=== PATIENT | female | born 1955 ===

== ENCOUNTER 2017-08-05 06:58 | Day surgery (SDC) | payer OTHER ==
[2017-08-05 07:21] VITALS: BMI 25.4
[2017-08-05] MEDS ORDERED: Lactated Ringer's 1,000 ML IV ONE ×2 (08:21)
--- NOTE | 2017-08-05 08:22 | CP.SDSHP ---
Same Day Surgery H & P - History Proposed Procedure: EGD Pre-Op Diagnosis: SEE NOTES - Previous Medical/Surgical History Cardiac: Hypertension Endocrine/Metabolic: Diabetes, Other Misc: Other Pain: 4.Moderate Pain - Allergies Allergies: Allergies No Known Allergies Allergy (Verified 08/05/17 07:21) - Physical Exam General Appearance: N Vital Signs: Vital Signs 08/05/17 07:32 Temperature 97.5 F L Pulse Rate 62 Respiratory 18 Rate Blood Pressure 119/63 O2 Sat by Pulse 100 Oximetry Mental Status: Alert & Oriented x3 Neuro: WNL Heart: Other Lungs: WNL GI: Other - {Optional Preform as Required} Breast: WNL Abdomen: Other Rectal: Other Integument: WNL : WNL Ortho: Other ENT: WNL - Impression Pt. Evaluated Today:Candidate for Anesthesia & Procedure: Yes - Date & Time Time: 08:22 Short Stay Discharge - Short Stay Discharge Admitting Diagnosis/Reason for Visit: DYSPEPSIA Disposition: HOME/ ROUTINE
[2017-08-05] MEDS ORDERED: Propofol 10 mg/ml Inj (20 ML) ONE ×2 (08:23→08:24)
[2017-08-05] MEDS ORDERED: Lidocaine Hydrochloride 5 ML INJ ONE (08:25)
[2017-08-05] MEDS ORDERED: Belladonna-Phenobarbital PO ONE (09:00)
[2017-08-05 09:07] VITALS: TEMP 97.7
[2017-08-05 09:28] VITALS: O2SAT 100
[2017-08-05 09:29] VITALS: RESP 19
[2017-08-05 10:13] VITALS: BP 120/79; PULSE 89
== END 2017-08-05 09:40 | disposition home or self-care (01) ==
LOC: C.ENDO 06:58
PROVIDERS: ATTEND Specialist
DX: R10.13 Epigastric pain (principal); R10.84 Generalized abdominal pain; K44.9 Diaphragmatic hernia without obstruction or gangrene; K29.70 Gastritis, unspecified, without bleeding; K29.80 Duodenitis without bleeding; I10 Essential (primary) hypertension; E11.9 Type 2 diabetes mellitus without complications
CPT/HCPCS: 43239; 82948; 88305; J2704; J7120

== ENCOUNTER 2018-07-24 06:58 | Inpatient (IN) | payer OTHER ==
[2018-07-24 07:13] VITALS: BMI 24.0
--- NOTE | 2018-07-24 07:53 | C.PDOC ---
History Of Present Illness 63 y/o female with a PMHx of diabetes, hypertension, hypercholesterolemia, presents to the ED complaining of pain to the left upper arm and shoulder, onset yesterday morning. Reports taking Tylenol at home without relief. Patient states she was unable to sleep last night due to worsening pain. She also notes occasional chest pain. Admits to mild cough and feeling of dry mouth but she denies feeling short of breath. Otherwise she denies any dizziness, palpitations, nausea, vomiting, diaphoresis, visual changes, or leg pain/swe lling. No associated extremity weakness, numbness, or paresthesias. Denies recent trauma or fall. Time Seen by Provider: 07/24/18 07:35 Chief Complaint (Nursing): Upper Extremity Problem/Injury History Per: Patient History/Exam Limitations: no limitations Onset/Duration Of Symptoms: Days (x 2) Current Symptoms Are (Timing): Still Present Quality: "Pain" Past Medical History Reviewed: Historical Data, Nursing Documentation, Vital Signs Vital Signs: Last Vital Signs Temp 98.1 F 07/24/18 07:13 Pulse 103 H 07/24/18 07:13 Resp 18 07/24/18 07:13 BP 152/78 H 07/24/18 07:13 Pulse Ox 100 07/24/18 07:13 - Medical History PMH: Diabetes, HTN, Hypercholesterolemia Denies: Chronic Kidney Disease Other Surgeries: Tubal ligation Family History: States: Unknown Family Hx - Social History Hx Tobacco Use: No Hx Alcohol Use: No Hx Substance Use: No - Immunization History Hx Tetanus Toxoid Vaccination: No Hx Influenza Vaccination: Yes Hx Pneumococcal Vaccination: No Review Of Systems Except As Marked, All Systems Reviewed And Found Negative. Constitutional: Negative for: Fever, Chills Eyes: Negative for: Vision Change Cardiovascular: Positive for: Chest Pain (occasional). Negative for: Palpitations, Light Headedness Respiratory: Positive for: Cough. Negative for: Shortness of Breath Gastrointestinal: Negative for: Nausea, Vomiting Musculoskeletal: Positive for: Shoulder Pain, Arm Pain Neurological: Negative for: Weakness, Numbness, Incoordination, Dizziness Physical Exam - Physical Exam Appears: Non-toxic, No Acute Distress Skin: Warm, Dry, No Diaphoretic Head: Atraumatic, Normacephalic Eye(s): bilateral: Normal Inspection, PERRL, EOMI Oral Mucosa: Moist Neck: Normal ROM Chest: Symmetrical, No Tenderness, No Ecchymosis Cardiovascular: Rhythm Regular, No Murmur Respiratory: Normal Breath Sounds, No Rales, No Rhonchi, No Wheezing Gastrointestinal/Abdominal: Soft, No Tenderness, No Distention Extremity: No Pedal Edema, No Deformity Extremity: Bilateral: Atraumatic (with no focal tenderness to the left upper extremity), Normal Color And Temperature, Normal ROM (x 4) Pulses: Left Radial: Normal, Right Radial: Normal Neurological/Psych: Oriented x3, Normal Speech, Normal Cranial Nerves ED Course And Treatment - Laboratory Results Result Diagrams: 07/24/18 08:08 07/24/18 08:08 ECG: Interpreted By Me, Viewed By Me ECG Rhythm: Sinus Tachycardia Interpretation Of ECG: No ST elevations or depressions Rate From EC (bpm) O2 Sat by Pulse Oximetry: 100 (RA) Pulse Ox Interpretation: Normal - Radiology CXR: Interpreted by Me, Viewed By Me CXR Interpretation: Yes: No Acute Disease - Other Rad Left Shoulder X-Ray X-Ray: Interpreted by Me, Viewed By Me Interpretation: (-) acute fracture or dislocation Progress Note: EKG reviewed, no acute changes. Blood work sent to the lab. Administered 325 mg PO Aspirin. X-ray taken of chest and left shoulder. Labs reviewed, (-) trop, blood sugar 292, otherwise unremarkable. Imaging shows no acute findings. Patient educated regarding negative cardiac work-up. [employer] used to ensure understanding. She continues to complain of chest pain radiating to the left shoulder, will admit for obs. - Physician Consult Information Time Consulting Physician Contacted: 10:50 Physician Contacted: Priscilla Riley Outcome Of Conversation: Patient accepted for observation of chest pain, requests cardiology consult w/ Dr. Jarrett Disposition - Disposition Disposition: HOSPITALIZED Disposition Time: 10:55 Condition: FAIR - Clinical Impression Clinical Impression: Chest pain - PA / MANAGER MEDICAL / Resident Statement MD/DO has reviewed & agrees with the documentation as recorded. - Scribe Statement The provider has reviewed the documentation as recorded by the Scribdominique Kruger All medical record entries made by the Scribe were at my direction and personally dictated by me. I have reviewed the chart and agree that the record accurately reflects my personal performance of the history, physical exam, m edical decision making, and the department course for this patient. I have also personally directed, reviewed, and agree with the discharge instructions and disposition. Decision To Admit - Pt Status Changed To: Hospital Disposition Of: Observation - . Bed Request Type: Telemetry Admitting Physician: Priscilla Riley Patient Diagnosis: Chest pain
[2018-07-24 08:13] LABS: BASO % 0.3 % (0.0-2.0); EOS # 0.1 K/uL (0.0-0.7); LYMPH # 2.7 K/uL (1.0-4.3); LYMPH % 28.6 % (20.0-40.0); MEAN CORPUSCULAR HEMOGLOBIN 28.3 pg (27.0-31.0); MEAN CORPUSCULAR HGB CONC 32.9 g/dL (33.0-37.0); MEAN PLATELET VOLUME 9.5 fL (7.2-11.7); MONO # 0.6 K/uL (0.0-0.8); MONO % 6.4 % (0.0-10.0); NEUT # 6.1 K/uL (1.8-7.0); NEUT % 63.7 % (50.0-75.0); RBC 4.94 Mil/uL (3.80-5.20); RED CELL DISTRIBUTION WIDTH 14.3 % (11.5-14.5); WHITE BLOOD COUNT 9.6 K/uL (4.8-10.8)
[2018-07-24 08:35] LABS: ALB/GLOB RATIO 1.5 (1.0-2.1); ALBUMIN 4.5 g/dL (3.5-5.0); ALT/SGPT 27 U/L (9-52); AST/SGOT 21 U/L (14-36); BLOOD UREA NITROGEN 17 mg/dL (7-17); CALCIUM 9.2 mg/dl (8.6-10.4); GFR NON-AFRICAN AMERICAN > 60
[2018-07-24 08:42] LABS: CK-MB 0.43 ng/mL (0.0-3.38)
--- NOTE | 2018-07-24 10:27 | RAD ---
PROCEDURE: Radiographs of the Left Shoulder HISTORY: atraumatic pain COMPARISON: None available. FINDINGS: BONES: No acute displaced fracture. The distal clavicle and underlying ribs appear intact. JOINTS: No acute dislocation. SOFT TISSUES: Soft tissues appear unremarkable. No evidence of radiopaque foreign body. IMPRESSION: No acute findings.
--- NOTE | 2018-07-24 10:28 | RAD ---
HISTORY: left shoulder pain, cough, CP COMPARISON: None available. TECHNIQUE: Chest PA and lateral FINDINGS: LUNGS: No focal consolidation. Please note that chest x-ray has limited sensitivity for the detection of pulmonary masses. PLEURA: No significant pleural effusion identified. No definite pneumothorax . CARDIOVASCULAR: Heart size appears within normal limits. No atherosclerotic calcification present. OSSEOUS STRUCTURES: No acute osseous abnormality identified. VISUALIZED UPPER ABDOMEN: Unremarkable. OTHER FINDINGS: None. IMPRESSION: No focal consolidation.
--- NOTE | 2018-07-24 11:39 | CP.PCM.PN ---
Subjective - Date & Time of Evaluation Date of Evaluation: 07/24/18 Time of Evaluation: 11:39 - Subjective Subjective: H&P dictated #[id number] Objective - Vital Signs/Intake and Output Vital Signs (last 24 hours): Temp Pulse Resp BP Pulse Ox 98.1 F 103 H 18 152/78 H 100 07/24/18 07:13 07/24/18 07:13 07/24/18 07:13 07/24/18 07:13 07/24/18 11:05 - Labs Labs: 07/24/18 08:08 07/24/18 08:08 PT 11.0 SECONDS (9.7-12.2) 07/24/18 08:08 INR 1.0 07/24/18 08:08 APTT 30 SECONDS (21-34) 07/24/18 08:08
[2018-07-24] MEDS: (Novolin R) Insulin Human Regular 100 units/ml vial SC SCH ×2 (15:33→21:32)
[2018-07-24] MEDS ORDERED: (Novolin R) Insulin Human Regular 100 units/ml vial ONE (15:38)
[2018-07-24 16:19] VITALS: RESP 20
[2018-07-24 19:31] LABS: SQUAMOUS EPITHIAL 1 /hpf (0-5); URINE BILIRUBIN NEGATIVE (NEGATIVE); URINE BLOOD NEGATIVE (NEGATIVE); URINE CLARITY Clear (Clear); URINE COLOR Yellow (YELLOW); URINE GLUCOSE (UA) 3+ mg/dL (Normal); URINE LEUKOCYTE ESTERASE 1+ Leu/uL (Negative); URINE PROTEIN NEGATIVE (NEGATIVE); URINE UROBILINOGEN NORMAL mg/dL (0.2-1.0)
[2018-07-25 04:09] LABS: BASO # 0.1 K/uL (0.0-0.2); EOS # 0.1 K/uL (0.0-0.7); EOS % 1.4 % (0.0-4.0); HEMOGLOBIN 14.5 g/dL (11.0-16.0); LYMPH # 3.9 K/uL (1.0-4.3); MEAN CORPUSCULAR HEMOGLOBIN 28.2 pg (27.0-31.0); MEAN CORPUSCULAR HGB CONC 32.8 g/dL (33.0-37.0); MEAN PLATELET VOLUME 9.8 fL (7.2-11.7); MONO # 0.7 K/uL (0.0-0.8); NEUT # 4.7 K/uL (1.8-7.0); NEUT % 49.6 % (50.0-75.0); RBC 5.13 Mil/uL (3.80-5.20); RED CELL DISTRIBUTION WIDTH 14.1 % (11.5-14.5); WHITE BLOOD COUNT 9.5 K/uL (4.8-10.8)
[2018-07-25 04:37] LABS: ALB/GLOB RATIO 1.6 (1.0-2.1); ALBUMIN 4.4 g/dL (3.5-5.0); ALT/SGPT 19 U/L (9-52); AST/SGOT 16 U/L (14-36); BLOOD UREA NITROGEN 21 mg/dL (7-17); CALCIUM 8.7 mg/dl (8.6-10.4); GFR NON-AFRICAN AMERICAN > 60; HDL CHOLESTEROL 49 mg/dL (30-70)
[2018-07-25 04:38] LABS: LDL CHOLESTEROL 160 mg/dL (0-129)
[2018-07-25] MEDS: (Novolin R) Insulin Human Regular 100 units/ml vial SC SCH ×4 (07:42→21:14)
--- NOTE | 2018-07-25 09:47 | CP.PCM.PN ---
Subjective - Date & Time of Evaluation Date of Evaluation: 07/25/18 Time of Evaluation: 09:47 - Subjective Subjective: Progress note dictated #[id number] Objective - Vital Signs/Intake and Output Vital Signs (last 24 hours): Temp Pulse Resp BP Pulse Ox 99.8 F H 87 20 110/70 97 07/25/18 08:35 07/25/18 09:01 07/25/18 08:35 07/25/18 08:35 07/25/18 08:35 Intake and Output: 07/25/18 07/25/18 06:59 18:59 Intake Total 120 Balance 120 - Medications Medications: Current Medications Glimepiride (Amaryl) 4 mg PO BID [facility] Last Admin: 07/25/18 09:16 Dose: 4 mg Heparin Sodium (Porcine) (Heparin) 5,000 units SC Q12 [facility] Last Admin: 07/25/18 09:16 Dose: 5,000 units Insulin Human Regular (Novolin R) 1 unit SC ACHS [facility]; Protocol Last Admin: 07/25/18 07:42 Dose: 4 units Lisinopril (Zestril) 5 mg PO DAILY [facility] Last Admin: 07/25/18 09:32 Dose: 5 mg Metformin HCl (Glucophage) 1,000 mg PO BID [facility] Last Admin: 07/25/18 09:16 Dose: 1,000 mg Rosuvastatin Calcium (Crestor) 10 mg PO HS [facility] Last Admin: 07/24/18 21:54 Dose: 10 mg - Labs Labs: 07/25/18 04:06 07/25/18 04:06 PT 11.0 SECONDS (9.7-12.2) 07/24/18 08:08 INR 1.0 07/24/18 08:08 APTT 30 SECONDS (21-34) 07/24/18 08:08
[2018-07-25] MEDS: Lidocaine 5% Patch TD SCH (11:49)
--- NOTE | 2018-07-25 15:33 | PN ---
DATE: 07/25/2018 SUBJECTIVE: The patient is seen and examined at bedside. The patient feels slightly better. Left-sided shoulder pain is better, but still present; is able to move her left upper extremity better than before. Denies any other new complaints. PHYSICAL EXAMINATION: GENERAL: A middle-aged female lying in bed, in no acute distress. VITAL SIGNS: Blood pressure 110/70, pulse 87, respirations 20, temperature 99.8 degrees Fahrenheit, and O2 sats 97% on room air. HEENT: Pupils equal, round, and reacting to light and accommodation. Extraocular muscles intact. No icterus. No pallor. No oral thrush. No pharyngeal congestion. NECK: Supple. No JVD. LUNGS: Bilateral vesicular breath sounds. No wheezing. No rhonchi. CVS: S1 and S2 present, regular. ABDOMEN: Soft, nontender. Bowel sounds present. No guarding, no rigidity. No rebound tenderness noted. DIRECTOR OF ORTHOPEDICS: Alert, awake, and oriented x3. No focal deficits noted. EXTREMITIES: No edema. Palpable peripheral pulses. Movements around the left shoulder slightly improved than yesterday. MEDICATIONS: Her medications include Amaryl 4 mg b.i.d., heparin 5000 units subcu every 12 hours, Zestril 5 mg daily, metformin 1000 mg p.o. t.i.d., Crestor 10 mg p.o. h.s. LABORATORY DATA: Labs from this morning, WBC 9.5, hemoglobin 14.5, hematocrit 44.1, platelets 267. Sodium 136, potassium 4.7, chloride 101, bicarb 23, BUN 21, creatinine 0.7, glucose 324, 283; calcium 8.7; total bilirubin 0.5; AST 16; ALT 19; alkaline phosphatase 89; total protein 7.2; albumin 4.4; triglycerides 279; cholesterol 240; LDL 160; HDL 49. Shoulder x-ray negative. Echocardiogram done, report is stenting. MRI ordered, not done yet. ASSESSMENT AND PLAN: A middle-aged female with past medical history of hypertension, hyperlipidemia, diabetes mellitus, hiatal hernia, gastritis, admitted for left-sided shoulder pain and left-sided chest pain. All the cardiac enzymes are negative. No new EKG changes. Echocardiogram pending results. Probably a difficult chest pain, left shoulder pain, possible muscular pain versus tendonitis. I will continue with current medication. The patient takes insulin at home which is 22 units at night. We will restart her insulin. Continue with other medication. We will follow up echo report and follow up with Cardiology. If echo is negative and cleared by Cardiology, we will plan discharging the patient home in a.m. Priscilla Riley MD
--- NOTE | 2018-07-25 16:48 | MRI ---
MRI left shoulder HISTORY: Shoulder pain. Comparison: None available. Technique: Multi-echo multiplanar sequences were performed through the left shoulder without the use of intravenous contrast. Findings: Prominent thinning with increased signal seen within and at the undersurface of the distal supraspinatus tendon suggestive for prominent partial articular surface tearing with an associated moderate tendinopathy. At approximately 1.1 centimeters from its insertion on the distal supraspinatus tendon, there is a large focal partial-thickness tear as demonstrated on series 10, image 18. No significant muscle atrophy. Moderate distal infraspinatus tendinopathy with interstitial delamination and interstitial partial tearing. No gross full-thickness defect, tendon retraction, or muscle atrophy. Teres minor tendon is preserved. Moderate distal subscapularis tendinopathy. Proximal portion of the long head of the biceps tendon is maintained within its normal anatomic position. Evaluation of the glenoid labrum demonstrates degenerative fraying and/or degenerative partial tearing at the level of the anterior inferior as well as the posterior superior labrum. Small to moderate glenohumeral joint effusion. Prominent increased signal is seen within the subscapularis muscle belly as demonstrated on series 10, images 1-5. This is of uncertain clinical etiology and may represent a myositis versus intramuscular partial tearing versus the sequelae of acute infectious and or inflammatory changes versus additional etiology. Clinical correlation. Heterogeneity of the visualized marrow with patchy decreased T1 signal suggestive for hematopoietic marrow reconversion. Moderate acromioclavicular joint space degenerative changes with joint space narrowing, subchondral edema, and bony hypertrophy. Incidentally noted is some reactive edema at the level of the left second and 3rd ribs which may represent underlying rib injury. Correlation with left rib series may be helpful if clinically indicated. Impression: 1. Small to moderate left glenohumeral joint effusion. 2. Prominent increased signal is seen within the left subscapularis muscle belly as demonstrated on series 10, images 1-5. This is of uncertain clinical etiology and may represent a myositis versus intramuscular partial tearing versus the sequelae of acute infectious and or inflammatory changes versus additional etiology. Clinical correlation. 3. Prominent thinning with increased signal seen within and at the undersurface of the distal supraspinatus tendon suggestive for prominent partial articular surface tearing with an associated moderate tendinopathy. At approximately 1.1 centimeters from its insertion on the distal supraspinatus tendon, there is a large focal partial-thickness tear as demonstrated on series 10, image 18. No significant muscle atrophy. 4. Moderate distal infraspinatus tendinopathy with interstitial delamination and interstitial partial tearing. No gross full-thickness defect, tendon retraction, muscle atrophy. 5. Moderate distal subscapularis tendinopathy. 6. Evaluation of the glenoid labrum demonstrates degenerative fraying and/or degenerative partial tearing at the level of the anterior inferior as well as the posterior superior labrum. 7. Moderate acromioclavicular joint space degenerative changes with joint space narrowing, subchondral edema, and bony hypertrophy. 8. Incidentally noted is some reactive edema at the level of the left second and 3rd ribs which may represent underlying rib injury. Correlation with left rib series may be helpful if clinically indicated.
--- NOTE | 2018-07-25 16:50 | CARD ---
APPROVED REPORT Date of service: 07/24/2018 EXAM: Two-dimensional and M-mode echocardiogram with Doppler and color Doppler. INDICATION Chest Pain 2D DIMENSIONS IVSd0.6 (0.7-1.1cm)Aortic Root (2D)3.1 (2.0-3.7cm) LVDd5.1 (3.9-5.9cm)PWd0.5 (0.7-1.1cm) LA Qeqhuw12 (18-58mL)LVDs3.5 (2.5-4.0cm) FS (%) 31.8 %LVEF (%)59.5 (>50%) LVEF (Toribio's)60 %IVC0.00 cm M-Mode DIMENSIONS IVSd0.52 (0.7-1.1cm)LVDd5.04 (4.0-5.6cm) PWd0.68 (0.7-1.1cm)FS (%) 35 % LVDs3.29 (2.0-3.8cm)TAPSE12.36 cm LVEF (%)64 (>50%) Mitral Valve MV E Xovhwhgx22.4cm/sMV A Nphdukyu63.8cm/sE/A ratio0.9 TDI Lateral E' Peak V4.09cm/sMedial E' Peak V3.58cm/sE/Lateral E'15.7 E/Medial E'18.0 Tricuspid Valve TR Peak [id number]/sTR Peak Gr.[id number] LEFT VENTRICLE The left ventricle is normal size. There is normal left ventricular wall thickness. Left ventricle systolic function is normal. The Ejection Fraction is 55-60%. There is normal LV segmental wall motion. Tissue Doppler imaging reveals abnormal left ventricular diastolic dysfunction. RIGHT VENTRICLE The right ventricle is normal size. There is normal right ventricular wall thickness. The right ventricular systolic function is normal. ATRIA The left atrium size is normal. The right atrium size is normal. The interatrial septum is intact with no evidence for an atrial septal defect. AORTIC VALVE The aortic valve is normal in structure. No aortic regurgitation is present. There is no aortic valvular stenosis. MITRAL VALVE The mitral valve is normal in structure. There is no evidence of mitral valve prolapse. There is no mitral valve stenosis. Mitral regurgitation is mild. TRICUSPID VALVE The tricuspid valve is normal in structure. There is mild tricuspid regurgitation. Right ventricular systolic pressure is estimated at 30-40 mmHg. There is mild pulmonary hypertension. PULMONIC VALVE The pulmonic valve is not well visualized. There is no pulmonic valvular regurgitation. GREAT VESSELS The aortic root is normal in size. PERICARDIAL EFFUSION There is no significant pericardial effusion. <Conclusion> Left ventricle systolic function is normal. The Ejection Fraction is 55-60%. Diastolic dysfunction. No aortic regurgitation is present. Mitral regurgitation is mild. There is mild tricuspid regurgitation. There is mild pulmonary hypertension. There is no pulmonic valvular regurgitation.
--- NOTE | 2018-07-25 19:29 | CP.PCM.CON ---
History of Present Illness - History of Present Illness History of Present Illness: CC: Chest Pain 63 y/o female with a PMHx of diabetes, hypertension, hypercholesterolemia, presents to the ED complaining of pain to the left upper arm and shoulder, onset yesterday morning. Reports taking Tylenol at home without relief. Patient states she was unable to sleep last night due to worsening pain. She also notes occasional chest pain. Admits to mild cough and feeling of dry mouth but she denies feeling short of breath. Otherwise she denies any dizziness, palpitations, nausea, vomiting, diaphoresis, visual changes, or leg pain/swelling. No associated extremity weakness, numbness, or paresthesias. Denies recent trauma or fall. Chief Complaint (Nursing): Upper Extremity Problem/Injury History Per: Patient History/Exam Limitations: no limitations Onset/Duration Of Symptoms: Days (x 2) Current Symptoms Are (Timing): Still Present Quality: "Pain" - Medical History PMH: Diabetes, HTN, Hypercholesterolemia Denies: Chronic Kidney Disease Other Surgeries: Tubal ligation Family History: States: Unknown Family Hx - Social History Hx Tobacco Use: No Hx Alcohol Use: No Hx Substance Use: No - Immunization History Hx Tetanus Toxoid Vaccination: No Hx Influenza Vaccination: Yes Hx Pneumococcal Vaccination: No Review Of Systems Except As Marked, All Systems Reviewed And Found Negative. Constitutional: Negative for: Fever, Chills Eyes: Negative for: Vision Change Cardiovascular: Positive for: Chest Pain (occasional). Negative for: Palpitations, Light Headedness Respiratory: Positive for: Cough. Negative for: Shortness of Breath Gastrointestinal: Negative for: Nausea, Vomiting Musculoskeletal: Positive for: Shoulder Pain, Arm Pain Neurological: Negative for: Weakness, Numbness, Incoordination, Dizziness Physical Exam - Physical Exam Appears: Non-toxic, No Acute Distress Skin: Warm, Dry, No Diaphoretic Head: Atraumatic, Normacephalic Eye(s): bilateral: Normal Inspection, PERRL, EOMI Oral Mucosa: Moist Neck: Normal ROM Chest: Symmetrical, No Tenderness, No Ecchymosis Cardiovascular: Rhythm Regular, No Murmur Respiratory: Normal Breath Sounds, No Rales, No Rhonchi, No Wheezing Gastrointestinal/Abdominal: Soft, No Tenderness, No Distention Extremity: No Pedal Edema, No Deformity Extremity: Bilateral: Atraumatic (with no focal tenderness to the left upper extremity), Normal Color And Temperature, Normal ROM (x 4) Pulses: Left Radial: Normal, Right Radial: Normal Neurological/Psych: Oriented x3, Normal Speech, Normal Cranial Nerves Past Patient History - Past Medical History & Family History Past Medical History?: Yes - Past Social History Smoking Status: Never Smoked - CARDIAC Hx Hypercholesterolemia: Yes Hx Hypertension: Yes - PULMONARY Hx Respiratory Disorders: No - NEUROLOGICAL Hx Neurological Disorder: No - HEENT Hx HEENT Problems: No - RENAL Hx Chronic Kidney Disease: No - ENDOCRINE/METABOLIC Hx Endocrine Disorders: Yes Hx Diabetes Mellitus Type 2: Yes - HEMATOLOGICAL/ONCOLOGICAL Hx Blood Disorders: No - INTEGUMENTARY Hx Dermatological Problems: No - MUSCULOSKELETAL/RHEUMATOLOGICAL Hx Musculoskeletal Disorders: No - GASTROINTESTINAL Hx Hemorrhoids: Yes - GENITOURINARY/GYNECOLOGICAL Hx Genitourinary Disorders: No - PSYCHIATRIC Hx Substance Use: No - SURGICAL HISTORY Hx Surgeries: Yes (BLADDER LIFT) Hx Tubal Ligation: Yes - ANESTHESIA Hx Malignant Hyperthermia: No Meds Allergies/Adverse Reactions: Allergies Allergy/AdvReac Type Severity Reaction Status Date / Time No Known Allergies Allergy Verified 07/24/18 07:12 - Medications Medications: Current Medications Glimepiride (Amaryl) 4 mg PO BID [facility] Last Admin: 07/25/18 17:08 Dose: 4 mg Heparin Sodium (Porcine) (Heparin) 5,000 units SC Q12 [facility] Last Admin: 07/25/18 09:16 Dose: 5,000 units Ibuprofen (Motrin Tab) 400 mg PO Q8H PRN PRN Reason: Pain, moderate (4-7) Insulin Human Regular (Novolin R) 1 unit SC [facility]; Protocol Last Admin: 07/25/18 17:09 Dose: 5 units Lidocaine (Lidoderm) 1 ea TD DAILY [facility] Last Admin: 07/25/18 11:49 Dose: 1 ea Lisinopril (Zestril) 5 mg PO DAILY [facility] Last Admin: 07/25/18 09:32 Dose: 5 mg Metformin HCl (Glucophage) 1,000 mg PO BID [facility] Last Admin: 07/25/18 17:08 Dose: 1,000 mg Rosuvastatin Calcium (Crestor) 10 mg PO HS [facility] Last Admin: 07/24/18 21:54 Dose: 10 mg Results - Vital Signs Recent Vital Signs: Last Vital Signs Temp 99.8 F H 07/25/18 08:35 Pulse 87 07/25/18 09:01 Resp 20 07/25/18 08:35 BP 110/70 07/25/18 08:35 Pulse Ox 97 07/25/18 08:35 - Labs Result Diagrams: 07/25/18 04:06 07/25/18 04:06 Labs: Laboratory Results - last 24 hr 07/24/18 07/24/18 07/24/18 19:09 19:18 21:18 WBC RBC Hgb Hct MCV MCH MCHC RDW Plt Count MPV Neut % (Auto) Lymph % (Auto) Henry % (Auto) Eos % (Auto) Baso % (Auto) Neut # (Auto) Lymph # (Auto) Henry # (Auto) Eos # (Auto) Baso # (Auto) Sodium Potassium Chloride Carbon Dioxide Anion Gap BUN Creatinine Est GFR ( Amer) Est GFR (Non-Af Amer) POC Glucose (mg/dL) 246 H Random Glucose Calcium Total Bilirubin AST ALT Alkaline Phosphatase Troponin I < 0.0120 Total Protein Albumin Globulin Albumin/Globulin Ratio Triglycerides Cholesterol LDL Cholesterol Direct HDL Cholesterol Urine Color Yellow Urine Clarity Clear Urine pH 7.0 Ur Specific Carter 1.013 Urine Protein Negative Urine Glucose (UA) 3+ H Urine Ketones Trace Urine Blood Negative Urine Nitrate Negative Urine Bilirubin Negative Urine Urobilinogen Normal Ur Leukocyte Esterase 1+ H Urine WBC (Auto) 7 H Urine RBC (Auto) < 1 Ur Squamous Epith Cells 1 07/25/18 07/25/18 07/25/18 04:06 04:06 04:06 WBC 9.5 RBC 5.13 Hgb 14.5 Hct 44.1 MCV 86.0 MCH 28.2 MCHC 32.8 L RDW 14.1 Plt Count 267 MPV 9.8 Neut % (Auto) 49.6 L Lymph % (Auto) 41.0 H Henry % (Auto) 7.0 Eos % (Auto) 1.4 Baso % (Auto) 1.0 Neut # (Auto) 4.7 Lymph # (Auto) 3.9 Henry # (Auto) 0.7 Eos # (Auto) 0.1 Baso # (Auto) 0.1 Sodium 136 Potassium 4.7 Chloride 101 Carbon Dioxide 23 Anion Gap 17 BUN 21 H Creatinine 0.7 Est GFR ( Amer) > 60 Est GFR (Non-Af Amer) > 60 POC Glucose (mg/dL) Random Glucose 283 H Calcium 8.7 Total Bilirubin 0.5 AST 16 ALT 19 Alkaline Phosphatase 89 Troponin I < 0.0120 Total Protein 7.2 Albumin 4.4 Globulin 2.8 Albumin/Globulin Ratio 1.6 Triglycerides 279 H D Cholesterol 240 H LDL Cholesterol Direct 160 H HDL Cholesterol 49 Urine Color Urine Clarity Urine pH Ur Specific Carter Urine Protein Urine Glucose (UA) Urine Ketones Urine Blood Urine Nitrate Urine Bilirubin Urine Urobilinogen Ur Leukocyte Esterase Urine WBC (Auto) Urine RBC (Auto) Ur Squamous Epith Cells 07/25/18 07/25/18 07/25/18 06:28 11:34 16:18 WBC RBC Hgb Hct MCV MCH MCHC RDW Plt Count MPV Neut % (Auto) Lymph % (Auto) Henry % (Auto) Eos % (Auto) Baso % (Auto) Neut # (Auto) Lymph # (Auto) Henry # (Auto) Eos # (Auto) Baso # (Auto) Sodium Potassium Chloride Carbon Dioxide Anion Gap BUN Creatinine Est GFR ( Amer) Est GFR (Non-Af Amer) POC Glucose (mg/dL) 324 H 255 H 350 H Random Glucose Calcium Total Bilirubin AST ALT Alkaline Phosphatase Troponin I Total Protein Albumin Globulin Albumin/Globulin Ratio Triglycerides Cholesterol LDL Cholesterol Direct HDL Cholesterol Urine Color Urine Clarity Urine pH Ur Specific Carter Urine Protein Urine Glucose (UA) Urine Ketones Urine Blood Urine Nitrate Urine Bilirubin Urine Urobilinogen Ur Leukocyte Esterase Urine WBC (Auto) Urine RBC (Auto) Ur Squamous Epith Cells Assessment & Plan - Assessment and Plan (Free Text) Assessment: 63 F with multiple cardiac risk factors admitted for chest pain Needs ECHO and stress test Scheduled for stress test Friday
--- NOTE | 2018-07-26 06:54 | HP ---
CHIEF COMPLAINT: Left-sided shoulder pain associated with nausea and dizziness. HISTORY OF PRESENT ILLNESS: Ms. Melchor is a 63-year-old female with past medical history of hypertension, hyperlipidemia, diabetes mellitus who has been following up with Dr. Aponte, not seen him in the past few months secondary to loss of her insurance coverage, came into the emergency room with left-sided shoulder pain, non-radiating, associated with nausea and dizziness. She claims that it started suddenly about three days ago, has been there persistently for the past three days, but this morning the pain got worse and it was associated with dizziness and nausea, which made her come to the emergency room. She has been taking aspirin without any significant relief. The patient denies any history of fall or injury, denies any similar pain in the past. She denies any neurologic symptoms, denies any abdominal pain, diarrhea or constipation. Denies any other complaints. PAST MEDICAL HISTORY: As described hypertension, hyperlipidemia, diabetes mellitus, hiatal hernial, gastritis. PAST SURGICAL HISTORY: Underwent hysterectomy in [facility]. FAMILY HISTORY: Permanent pacemaker placement in mother, who is alive. Father from coronary artery disease. PERSONAL HISTORY: She is , living with her , having nine children. She works as a homemaker. SOCIAL HISTORY: Denies smoking, alcohol, or drug abuse. ALLERGIES: NO KNOWN DRUG ALLERGIES. MEDICATIONS: Include lisinopril 5 mg daily, Zocor 40 mg p.o. at bedtime, metformin 1000 mg p.o. b.i.d., Amaryl 4 mg b.i.d., insulin 22 units at bedtime. REVIEW OF SYSTEMS: As described in history of present illness. All other symptoms reviewed and were found to be negative. PHYSICAL EXAMINATION: GENERAL: Middle-aged female, lying in bed, in no acute distress. VITAL SIGNS: Blood pressure 125/70, pulse 75, respirations 18, temperature 97.3 degrees Fahrenheit, and O2 saturations 100% on room air. HEENT: Pupils equal, round, reacting to light and accommodation. Extraocular muscles intact. No icterus. No pallor. No oral thrush. No pharyngeal congestion. NECK: Supple. No JVD. LUNGS: Bilateral vesicular breath sounds. No wheezing. No rhonchi. CVS: S1 and S2 present, regular. ABDOMEN: Soft, nontender. Bowel sounds present. No guarding. No rigidity. No rebound tenderness noted. [employer]ESSION[employer]: Alert, awake, and oriented x3. No focal deficits noted. EXTREMITIES: No edema. Palpable peripheral pulses. Left upper extremity limited movements with extension and circumduction. LABORATORY DATA: Done from the ED, WBC 9.6, hemoglobin 14, hematocrit 42.5, platelets 267. PT 11, INR 1, PTT 30. Sodium 138, potassium 4.9, chloride 103, bicarb 26, BUN 17, creatinine 0.5, glucose 292, calcium 9.2, total bilirubin 0.5, AST 21, ALT 27, alkaline phosphatase 91, CPK 45, troponin less 0.0120. Total protein 7.4, albumin 4.5. UA: Specific gravity 1.013, pH of 7, glucose 3+, leukocyte esterase 1+, wbc's 7. Chest x-ray, negative for any infiltrate. Shoulder x-ray: No acute findings. EKG consistent with sinus tachycardia at 110 beats per minute, Q-waves in 3, poor R-wave progression. The patient underwent EGD, consistent with hiatal hernia. The patient underwent colonoscopy, as per the patient it was negative. She had a mammogram done in 09/2017, which was negative. ASSESSMENT: Middle-aged female with history of hypertension, hyperlipidemia, diabetes mellitus, hiatal hernia, who has been following up with Dr. Aponte as primary care physician, came into the emergency room with left-sided shoulder pain which got worse this morning associated with nausea and dizziness. In the emergency department, the patient was evaluated and admitted to rule out any coronary artery disease. 1. Left-sided chest pain with shoulder pain in a patient with multiple risk factors, rule out acute coronary syndrome. 2. Left shoulder pain, possible tendinitis, frozen shoulder. 3. Diabetes mellitus. 4. Hypertension. 5. Hyperlipidemia. 6. Hiatal hernia. PLAN: The patient is being admitted to telemetry. We will do serial cardiac enzymes, serial EKGs. We will check echocardiogram. We will continue with her home medications, aspirin 325 mg p.o. daily, Lopressor 25 mg p.o. b.i.d., continue with lisinopril daily, Zocor 40 mg p.o. at bedtime, continue with insulin, Amaryl, and metformin. We will repeat lipid profile, hemoglobin A1c. We will obtain cardiology evaluation. We will check left shoulder MRI as x-rays are negative. We will consider Ortho consult. We will add further recommendations as her clinical course progresses. Priscilla Riley MD
[2018-07-26] MEDS: (Novolin R) Insulin Human Regular 100 units/ml vial SC SCH ×4 (07:58→21:28)
[2018-07-26 08:37] LABS: BASO % 0.6 % (0.0-2.0); EOS # 0.1 K/uL (0.0-0.7); EOS % 1.2 % (0.0-4.0); HEMOGLOBIN 14.7 g/dL (11.0-16.0); LYMPH # 3.5 K/uL (1.0-4.3); LYMPH % 43.1 % (20.0-40.0); MEAN CORPUSCULAR HEMOGLOBIN 28.3 pg (27.0-31.0); MEAN CORPUSCULAR HGB CONC 32.9 g/dL (33.0-37.0); MEAN PLATELET VOLUME 10.1 fL (7.2-11.7); MONO # 0.4 K/uL (0.0-0.8); MONO % 5.3 % (0.0-10.0); NEUT # 4.1 K/uL (1.8-7.0); NEUT % 49.8 % (50.0-75.0); NRBC % 0.1 % (0.0-2.0); RBC 5.21 Mil/uL (3.80-5.20); RED CELL DISTRIBUTION WIDTH 14.1 % (11.5-14.5); WHITE BLOOD COUNT 8.2 K/uL (4.8-10.8)
[2018-07-26 08:56] LABS: ALB/GLOB RATIO 1.4 (1.0-2.1); ALBUMIN 4.4 g/dL (3.5-5.0); ALT/SGPT 18 U/L (9-52); AST/SGOT 20 U/L (14-36); BLOOD UREA NITROGEN 29 mg/dL (7-17); CALCIUM 9.3 mg/dl (8.6-10.4); GFR NON-AFRICAN AMERICAN > 60
[2018-07-26] MEDS: Lidocaine 5% Patch TD SCH (09:08)
--- NOTE | 2018-07-26 13:21 | CP.PCM.PN ---
Subjective - Date & Time of Evaluation Date of Evaluation: 07/26/18 Time of Evaluation: 13:21 - Subjective Subjective: Progress note dictated #[id number] Objective - Vital Signs/Intake and Output Vital Signs (last 24 hours): Temp Pulse Resp BP Pulse Ox 97.9 F 100 H 20 90/60 L 96 07/26/18 08:46 07/26/18 08:46 07/26/18 08:46 07/26/18 08:46 07/26/18 08:46 - Medications Medications: Current Medications Glimepiride (Amaryl) 4 mg PO BID [facility] Last Admin: 07/26/18 09:10 Dose: 4 mg Heparin Sodium (Porcine) (Heparin) 5,000 units SC Q12 [facility] Last Admin: 07/26/18 09:09 Dose: 5,000 units Ibuprofen (Motrin Tab) 400 mg PO Q8H PRN PRN Reason: Pain, moderate (4-7) Insulin Human Regular (Novolin R) 1 unit SC ACHS [facility]; Protocol Last Admin: 07/26/18 11:52 Dose: 3 units Lidocaine (Lidoderm) 1 ea TD DAILY [facility] Last Admin: 07/26/18 09:08 Dose: 1 ea Lisinopril (Zestril) 5 mg PO DAILY [facility] Last Admin: 07/26/18 09:10 Dose: 5 mg Metformin HCl (Glucophage) 1,000 mg PO BID [facility] Last Admin: 07/26/18 09:09 Dose: 1,000 mg Rosuvastatin Calcium (Crestor) 10 mg PO HS [facility] Last Admin: 07/25/18 21:09 Dose: 10 mg - Labs Labs: 07/26/18 08:24 07/26/18 08:24 PT 11.0 SECONDS (9.7-12.2) 07/24/18 08:08 INR 1.0 07/24/18 08:08 APTT 30 SECONDS (21-34) 07/24/18 08:08
--- NOTE | 2018-07-26 19:34 | PN ---
DATE: 07/26/2018 SUBJECTIVE: The patient is seen and examined at bedside. The patient is feeling better. Left shoulder pain is still there, but better than yesterday. The lidocaine patches are helping. Denies any new complaints. PHYSICAL EXAMINATION: GENERAL: A middle-aged female, lying in bed, in no acute distress. VITAL SIGNS: Blood pressure 90/60, pulse 100, respirations 20, temperature 97.9 degrees Fahrenheit, and O2 saturations 96% on room air. HEENT: Pupils equal, round, and reacting to light and accommodation. Extraocular muscles intact. No icterus. No pallor. No oral thrush. No pharyngeal congestion. NECK: Supple. No JVD. LUNGS: Bilateral vesicular breath sounds. No wheezing, no rhonchi. CVS: S1, S2 present, regular. ABDOMEN: Soft and nontender. Bowel sounds present. No guarding, no rigidity. No rebound tenderness noted. CENTRAL NERVOUS SYSTEM: Alert, awake, and oriented x 3. No focal deficits noted. EXTREMITIES: No edema. Palpable peripheral pulses. Left shoulder has limited movements around the shoulder joint. MEDICATIONS: Include Amaryl 4 mg p.o. b.i.d., subcutaneous heparin, ibuprofen 400 mg every 8 hours, Lidoderm patches, Zestril 5 mg daily, metformin 1000 mg p.o. b.i.d., and Crestor 10 mg p.o. at bedtime. LABORATORY DATA: Labs done from this morning; WBC 8.2, hemoglobin 14.7, hematocrit 44.8, and platelets 317. Sodium 136, potassium 4.6, chloride 101, bicarb 36, BUN 29, creatinine 0.8, glucose 286, calcium 9.3. Other LFTs within normal limits. DIAGNOSTIC DATA: Shoulder MRI shows [id number] left glenohumeral effusion, moderate distal infraspinatus tendinopathy, moderate distal subcapsular tendinopathy, degenerative partial tearing at the level of anteroinferior as well as posterosuperior labrum, moderate acromioclavicular joint space degenerative changes. ASSESSMENT AND PLAN: A middle-aged female with history of hypertension, hyperlipidemia, diabetes mellitus, hiatal hernia, and gastritis, admitted for atypical chest pain, cardiac enzymes negative, echo within normal limits, left shoulder pain, MRI consistent with tendinopathy, and partial tear, for possible stress testing in the a.m. We will continue with Motrin and Lidoderm patches for the shoulder pain. We will obtain orthopedic consult. We will continue with other current medications. Her blood pressure is on the lower side. We will hold lisinopril. We will monitor vitals closely. Priscilla Riley MD
[2018-07-27] MEDS: (Novolin R) Insulin Human Regular 100 units/ml vial SC SCH ×4 (07:30→21:34)
[2018-07-27] MEDS ORDERED: Caffeine Citrated **INJ** 20 MG/ML IV ONE (07:55)
--- NOTE | 2018-07-27 11:53 | CP.PCM.PN ---
Subjective - Date & Time of Evaluation Date of Evaluation: 07/27/18 Time of Evaluation: 11:53 - Subjective Subjective: Progress note dictated # [id number] Objective - Vital Signs/Intake and Output Vital Signs (last 24 hours): Temp Pulse Resp BP Pulse Ox 97.9 F 80 20 102/58 L 95 07/27/18 07:00 07/27/18 07:45 07/27/18 07:00 07/27/18 07:00 07/27/18 07:00 - Medications Medications: Current Medications Glimepiride (Amaryl) 4 mg PO BID [facility] Last Admin: 07/27/18 10:25 Dose: Not Given Heparin Sodium (Porcine) (Heparin) 5,000 units SC Q12 [facility] Last Admin: 07/27/18 10:26 Dose: Not Given Ibuprofen (Motrin Tab) 400 mg PO Q8H PRN PRN Reason: Pain, moderate (4-7) Insulin Human Regular (Novolin R) 1 unit SC ACHS [facility]; Protocol Last Admin: 07/27/18 07:30 Dose: Not Given Lidocaine (Lidoderm) 1 ea TD DAILY [facility] Last Admin: 07/26/18 09:08 Dose: 1 ea Lisinopril (Zestril) 5 mg PO DAILY [facility] Last Admin: 07/26/18 09:10 Dose: 5 mg Metformin HCl (Glucophage) 1,000 mg PO BID [facility] Last Admin: 07/27/18 10:25 Dose: Not Given Rosuvastatin Calcium (Crestor) 10 mg PO HS [facility] Last Admin: 07/26/18 21:43 Dose: 10 mg - Labs Labs: 07/26/18 08:24 07/26/18 08:24 PT 11.0 SECONDS (9.7-12.2) 07/24/18 08:08 INR 1.0 07/24/18 08:08 APTT 30 SECONDS (21-34) 07/24/18 08:08
[2018-07-27] MEDS: Lidocaine 5% Patch TD SCH (12:11)
--- NOTE | 2018-07-27 12:16 | CARD ---
APPROVED REPORT Date of service: 07/24/2018 EKG Measurement Heart [id number] <Conclusion> Sinus tachycardia Cannot rule out Anterior infarct, age undetermined Abnormal ECG
--- NOTE | 2018-07-27 20:00 | CARD ---
APPROVED REPORT Date of service: 07/25/2018 EKG Measurement Heart [id number] <Conclusion> Normal sinus rhythm Poor R wave progression Abnormal ECG
--- NOTE | 2018-07-27 21:28 | CP.PCM.PN ---
<Ana Rosa Murillo - Last Filed: 07/27/18 21:29> Subjective - Date & Time of Evaluation Date of Evaluation: 07/27/18 Time of Evaluation: 08:00 - Subjective Subjective: Cardiology Progress Note for Dr. Jarrett: Patient was seen and examined at bedside in the AM after her stress test. Patient states she is feeling much better today. She states the pain she had from her shoulder radiating to her arm has left. She denies chest pain, palpitations, shortness of breath, nausea, vomiting, fever or chills. Objective - Vital Signs/Intake and Output Vital Signs (last 24 hours): Temp Pulse Resp BP Pulse Ox 97.4 F L 81 20 131/78 99 07/27/18 15:00 07/27/18 20:00 07/27/18 15:00 07/27/18 15:00 07/27/18 15:00 - Medications Medications: Current Medications Glimepiride (Amaryl) 4 mg PO BID [facility] Last Admin: 07/27/18 17:51 Dose: 4 mg Heparin Sodium (Porcine) (Heparin) 5,000 units SC Q12 [facility] Last Admin: 07/27/18 10:26 Dose: Not Given Ibuprofen (Motrin Tab) 400 mg PO Q8H PRN PRN Reason: Pain, moderate (4-7) Insulin Human Regular (Novolin R) 1 unit SC ACHS [facility]; Protocol Last Admin: 07/27/18 17:51 Dose: 1 units Lidocaine (Lidoderm) 1 ea TD DAILY [facility] Last Admin: 07/27/18 12:11 Dose: 1 ea Lisinopril (Zestril) 5 mg PO DAILY [facility] Last Admin: 07/27/18 10:00 Dose: Not Given Metformin HCl (Glucophage) 1,000 mg PO BID [facility] Last Admin: 07/27/18 17:51 Dose: 1,000 mg Rosuvastatin Calcium (Crestor) 10 mg PO HS [facility] Last Admin: 07/26/18 21:43 Dose: 10 mg - Labs Labs: 07/26/18 08:24 07/26/18 08:24 PT 11.0 SECONDS (9.7-12.2) 07/24/18 08:08 INR 1.0 07/24/18 08:08 APTT 30 SECONDS (21-34) 07/24/18 08:08 - Constitutional Appears: Well, Non-toxic, No Acute Distress - Head Exam Head Exam: ATRAUMATIC, NORMAL INSPECTION - Eye Exam Eye Exam: EOMI, Normal appearance - ENT Exam ENT Exam: Mucous Membranes Moist - Respiratory Exam Respiratory Exam: Clear to Ausculation Bilateral, NORMAL BREATHING PATTERN - Cardiovascular Exam Cardiovascular Exam: REGULAR RHYTHM, +S1, +S2 - GI/Abdominal Exam GI & Abdominal Exam: Soft, Normal Bowel Sounds. absent: Tenderness - Extremities Exam Extremities Exam: Normal Inspection. absent: Pedal Edema - Neurological Exam Neurological Exam: Alert, Awake, Oriented x3 - Psychiatric Exam Psychiatric exam: Normal Mood - Skin Skin Exam: Normal Color Assessment and Plan - Assessment and Plan (Free Text) Assessment: 63 year old female with a PMHx of diabetes, hypertension, HLD, presented to the ED complaining of pain to the left upper arm and shoulder. ECHO (07/24/18): EF 55-60% Natali Stress Test: No stress induced ischemia. EF 62-73% No further cardiac work up recommended at this time. Case discussed with Dr. Kolby Murillo PGY-2 <Chicho Jarrett - Last Filed: 07/27/18 22:08> Objective - Vital Signs/Intake and Output Vital Signs (last 24 hours): Temp Pulse Resp BP Pulse Ox 97.4 F L 81 20 131/78 99 07/27/18 15:00 07/27/18 20:00 07/27/18 15:00 07/27/18 15:00 07/27/18 15:00 - Medications Medications: Current Medications Glimepiride (Amaryl) 4 mg PO BID [facility] Last Admin: 07/27/18 17:51 Dose: 4 mg Heparin Sodium (Porcine) (Heparin) 5,000 units SC Q12 [facility] Last Admin: 07/27/18 21:37 Dose: 5,000 units Ibuprofen (Motrin Tab) 400 mg PO Q8H PRN PRN Reason: Pain, moderate (4-7) Insulin Human Regular (Novolin R) 1 unit SC ACHS [facility]; Protocol Last Admin: 07/27/18 21:34 Dose: Not Given Lidocaine (Lidoderm) 1 ea TD DAILY [facility] Last Admin: 07/27/18 12:11 Dose: 1 ea Lisinopril (Zestril) 5 mg PO DAILY [facility] Last Admin: 07/27/18 10:00 Dose: Not Given Metformin HCl (Glucophage) 1,000 mg PO BID [facility] Last Admin: 07/27/18 17:51 Dose: 1,000 mg Rosuvastatin Calcium (Crestor) 10 mg PO [facility] Last Admin: 07/27/18 21:36 Dose: 10 mg - Labs Labs: 07/26/18 08:24 07/26/18 08:24 PT 11.0 SECONDS (9.7-12.2) 07/24/18 08:08 INR 1.0 07/24/18 08:08 APTT 30 SECONDS (21-34) 07/24/18 08:08 Assessment and Plan - Assessment and Plan (Free Text) Assessment: Patient seen and evaluated personally by me. Plan of care d/w the medical record specialist and as documented
--- NOTE | 2018-07-28 00:29 | PN ---
DATE: 07/27/2018 SUBJECTIVE: The patient was seen and examined at bedside. The patient offers no new complaints. She was waiting for a stress test to be done. All systems reviewed and were negative. PHYSICAL EXAMINATION: GENERAL: Middle-aged female, lying in bed, in no acute distress. VITAL SIGNS: Blood pressure 131/78, pulse 94, respirations 20, temperature 97.4 degrees Fahrenheit, O2 sat 99% on room air. HEENT: Pupils are equal, round, and reacting to light and accommodation. Extraocular muscles intact. No icterus. No pallor. No oral thrush. No pharyngeal congestion. NECK: Supple. No JVD. LUNGS: Bilateral vesicular breath sounds. No wheezing. No rhonchi. CARDIOVASCULAR: S1 and S2 present, regular. ABDOMEN: Soft, nontender. Bowel sounds present. No guarding. No rigidity. No rebound tenderness noted. CENTRAL NERVOUS SYSTEM: Alert, awake, oriented x3. No focal deficits noted. EXTREMITIES: No edema. Palpable peripheral pulses. MEDICATIONS: Include Amaryl 4 mg b.i.d., heparin 5000 units subcu every 12 hours, ibuprofen as needed, Lidoderm patch daily, Zestril 5 mg daily, Glucophage 1000 mg p.o. b.i.d., Crestor 10 mg p.o. at bedtime. LABORATORY DATA: Accu-Cheks 243, 228, 258, 461, 190. ASSESSMENT AND PLAN: Elderly female with history of hypertension, hyperlipidemia, diabetes mellitus, gastritis, hiatal hernia, admitted for chest pain. Cardiac enzymes and EKGs are negative. Left shoulder pain consistent with tendinopathy. The patient underwent stress testing this morning, awaiting for the results. If stress test is negative and cleared by Cardiology, we will plan discharging the patient home. We will restart her insulin dose. We will continue with other current medication. Priscilla Riley MD
--- NOTE | 2018-07-28 04:04 | CARD ---
APPROVED REPORT Date of service: 07/27/2018 Protocol: LEXISCAN Test Type: LEXISCAN Test Indications: CP Medications: LIST Target HR: 159 bpm Resting ECG: NSR WITH POOR RWAVE PROGRESSION V1-V4 Resting Heart Rate: 104 bpm Resting Blood Pressure: 108/70mmHg submaximum (85%): 135 bpm TEST SUMMARY PREINFSNHYPERV.45:[id number]/70.0. INFUSIONDOSE 100:300.00.01.0104/.0. [id number]/65.0. PROCEDURE Pharmacologic stress testing was performed using 0.4mg per 5ml of regadenoson given intravenously over 7-10 seconds. POST EXERCISE Reason for Termination: Protocol Completed Target HR: No Max HR: 104 bpm 81% of Maximum Predicted HR: 159 bpm Exercise duration: 00:30 min:sec, 0 Stage Exercise capacity: 1.0METs Max Blood Pressure: 130/65mmHg Blood Pressure response to exercise: normal resting BP - appropriate response Heart Rate response to exercise: appropriate Chest Pain: No, none Angina index: 0 Arrhythmia: No, none ST Change: Yes, NS ST T CHANGES Deviation: 0 mm INTERPRETATION Stress EKG Conclusion: NEGATIVE LEXISCAN STRESS TEST NORMAL BP RESPONSE TO LEXISCAN NUCLEAR STUDIES TO BE READ SEPARATELY EXAM: Myocardial Perfusion STRESS/REST Imaging Protocol The imaging protocol used to acquire images was Stress Tc-99m/rest Tc-99m 1 day Stress Spect myocardial perfusion imaging was performed in supine position 41 minutes following the injection of 13 mCi of Tc-99 Myoview. Gated Rest Spect was performed 45 minutes after intravenous 32.4 mCi Tc-99 Myoview injection. The images were gated to evaluate regional wall motion and calculate ventricular ejection fraction.Images were reconstructed using backfilter projection method in short horizontal and verticle long axis. Spect slices were generated. RESTING DATA EDV52.75roLM6.10L/min1/3 Pk. Filling Rate1.49EDV/sec LV Time to Pk. Filling Qxqx222.50msec ESV20.00mlMyocardial Mass92.00gLV Time to Pk. Ejection Rate93.52msec Pk. Fill Rate3.83EDV/secAv. Heart Rate96.00bpm EF62.00%Pk. Emptying Rate4.91ESV/sec STRESS DATA EDV63.95gmAQ7.80L/min ESV17.00mlMyocardial Xebo942.00g Pk. Fill Rate4.71EDV/sec EF73.00%Pk. Emptying Rate5.66ESV/sec 1/3 Pk. Filling Rate1.40EDV/secRegional WT score at stress:2.00 LV Time to Pk. Filling Rate:140.63msecRegional WM score at stress:0.00 LV Time to Pk. Ejection Rate:124.98msecSummed WT score at stress:4.00 Av. Heart Cnji898.00bpmSummed WM score at stress:4.00 LV Perf. Quant 17 Seg. SSS0.00 17 Seg. SRS0.00 17 Seg. SDS0.00 Stress Defect Extent (% LAD)0.00Rest Defect Extent (% LAD)0.00Rev. Defect Extent (% LAD)0.00 Stress Defect Extent (% LCX)0.00Rest Defect Extent (% LCX)0.00Rev. Defect Extent (% LCX)0.00 Stress Defect Extent (% RCA)0.00Rest Defect Extent (% RCA)0.00Rev. Defect Extent (% RCA)0.00 Stress Defect Extent (% FLORES)0.00Rest Defect Extent (% FLORES)0.00Rev. Defect Extent (% FLORES)0.00 Other Information Quality:Good IMPRESSION Normal Myocardial Perfusion exercise stress study Left Ventricle LV Function:Left ventricle systolic function is normal. The Ejection Fraction is >55%. Metabolism/Perfusion There are no perfusion/metabolism defects. Conclusion 1. Normal Lexiscan Nuclear Stress Test. Normal EF
[2018-07-28 06:43] LABS: BASO % 0.4 % (0.0-2.0); EOS # 0.1 K/uL (0.0-0.7); EOS % 1.3 % (0.0-4.0); HEMOGLOBIN 14.4 g/dL (11.0-16.0); LYMPH # 3.5 K/uL (1.0-4.3); LYMPH % 38.9 % (20.0-40.0); MEAN CELL VOLUME 85.7 fL (81.0-99.0); MEAN CORPUSCULAR HEMOGLOBIN 29.1 pg (27.0-31.0); MEAN PLATELET VOLUME 9.9 fL (7.2-11.7); MONO # 0.5 K/uL (0.0-0.8); MONO % 5.6 % (0.0-10.0); NEUT # 4.8 K/uL (1.8-7.0); NEUT % 53.8 % (50.0-75.0); NRBC % 0.1 % (0.0-2.0); RBC 4.96 Mil/uL (3.80-5.20); RED CELL DISTRIBUTION WIDTH 13.5 % (11.5-14.5)
[2018-07-28 07:48] LABS: ALB/GLOB RATIO 1.5 (1.0-2.1); ALBUMIN 4.4 g/dL (3.5-5.0); ALT/SGPT 23 U/L (9-52); AST/SGOT 25 U/L (14-36); BLOOD UREA NITROGEN 26 mg/dL (7-17); CALCIUM 9.2 mg/dl (8.6-10.4); GFR NON-AFRICAN AMERICAN > 60
[2018-07-28 08:06] VITALS: BP 106/67; PULSE 96; TEMP 98.4; O2SAT 94
[2018-07-28] MEDS: (Novolin R) Insulin Human Regular 100 units/ml vial SC SCH (08:41)
[2018-07-28] MEDS: Lidocaine 5% Patch TD SCH (10:36)
--- NOTE | 2018-07-28 11:07 | CP.PCM.PN ---
Subjective - Date & Time of Evaluation Date of Evaluation: 07/28/18 Time of Evaluation: 11:07 - Subjective Subjective: Discharge summary dictated #[id number] Objective - Vital Signs/Intake and Output Vital Signs (last 24 hours): Temp Pulse Resp BP Pulse Ox 98.4 F 96 H 20 106/67 94 L 07/28/18 08:05 07/28/18 08:05 07/28/18 08:05 07/28/18 08:05 07/28/18 08:05 Intake and Output: 07/28/18 07/28/18 06:59 18:59 Intake Total 350 Balance 350 - Medications Medications: Current Medications Glimepiride (Amaryl) 4 mg PO BID [facility] Last Admin: 07/28/18 10:36 Dose: 4 mg Heparin Sodium (Porcine) (Heparin) 5,000 units SC Q12 [facility] Last Admin: 07/28/18 10:39 Dose: 5,000 units Ibuprofen (Motrin Tab) 400 mg PO Q8H PRN PRN Reason: Pain, moderate (4-7) Insulin Human Regular (Novolin R) 1 unit SC ACHS [facility]; Protocol Last Admin: 07/28/18 08:41 Dose: 3 units Lidocaine (Lidoderm) 1 ea TD DAILY [facility] Last Admin: 07/28/18 10:36 Dose: 1 ea Lisinopril (Zestril) 5 mg PO DAILY [facility] Last Admin: 07/28/18 10:36 Dose: 5 mg Metformin HCl (Glucophage) 1,000 mg PO BID [facility] Last Admin: 07/28/18 10:36 Dose: 1,000 mg Rosuvastatin Calcium (Crestor) 10 mg PO HS [facility] Last Admin: 07/27/18 21:36 Dose: 10 mg - Labs Labs: 07/28/18 06:32 07/28/18 06:32 PT 11.0 SECONDS (9.7-12.2) 07/24/18 08:08 INR 1.0 07/24/18 08:08 APTT 30 SECONDS (21-34) 07/24/18 08:08
--- NOTE | 2018-07-28 20:49 | CON ---
DATE: 07/28/2018 HISTORY OF PRESENT ILLNESS: The patient was admitted by Dr. Riley with a diagnosis of chest pain. The patient did not give any history of trauma. The patient was complaining of severe pain and painful limitation in range of motion of the shoulder. The patient also had extensive cardiac workup done. PHYSICAL EXAMINATION: MUSCULOSKELETAL: Examination reveals no significant swelling of the shoulder. Range of motion of the shoulder is full. No significant areas of tenderness noted. No crepitus noted. Speed test is negative. Impingement sign is negative. Range of motion of the shoulder is full. No evidence of instability. Sulcus sign is negative. DIAGNOSTIC DATA: X-rays of the shoulder are essentially negative. MRI of the shoulder reveals some interstitial tearing and delamination of the supraspinatus and infraspinatus tendons. DIAGNOSIS: Rotator cuff tendonitis of the shoulder (resolved). The patient had extensive cardiac workup. At this point, the patient responded well to Lidoderm patches. The patient is instructed to continue range of motion exercises. We will follow the patient. The case was discussed with Dr. Riley. Eloina Arciniega MD
--- NOTE | 2018-07-29 04:44 | DS ---
DISCHARGE DIAGNOSES: Atypical chest pain, status post myocardial perfusion scan within normal limits, hypertension, hyperlipidemia, diabetes mellitus, gastritis, hiatal hernia, left shoulder rotator cuff tendonitis, and tendinopathy. HISTORY OF PRESENT ILLNESS: Mrs. Melchor is a 63-year-old female with past medical history of hypertension, hyperlipidemia, diabetes mellitus, admitted for sudden onset of left shoulder pain and left-sided chest pain. Today, the patient is feeling much better. Denies any headache, dizziness. Denies any chest pain, shortness of breath, or wheezing. Denies any nausea, vomiting, abdominal pain, diarrhea, or constipation. Denies any urinary complaints. Denies any leg pains or leg cramps. Denies any other neurologic symptoms. All other systems reviewed and were found to be negative. PHYSICAL EXAMINATION: GENERAL: A middle-aged female, lying in bed, in no acute distress. VITAL SIGNS: Blood pressure 106/67, pulse 96, respirations 20, temperature 98.4 degrees Fahrenheit, O2 sats 94% on room air. HEENT: Pupils equal, round, and reacting to light and accommodation. Extraocular muscles intact. No icterus. No pallor. No oral thrush. No pharyngeal congestion. NECK: Supple. No JVD. No thyromegaly. CHEST: Moving equally bilaterally on respiration. LUNGS: Bilateral vesicular breath sounds. No wheezing. No rhonchi. CARDIOVASCULAR SYSTEM: S1 and S2 present, regular. ABDOMEN: Soft, nontender. Bowel sounds present. No guarding. No rigidity. No rebound tenderness noted. CENTRAL NERVOUS SYSTEM: Alert, awake, oriented x3. No focal deficits noted. EXTREMITIES: No edema. Palpable peripheral pulses. LABORATORY DATA: Labs from this morning, WBC 9, hemoglobin 14.4, hematocrit 42.5, platelets 283. Sodium 136, potassium 4.9, chloride 101, bicarb 27, BUN 26, creatinine 0.8, glucose 252, calcium 9.2. LFTs within normal limits. Cardiac enzymes x3 negative. EKG no new EKG changes. Echocardiogram normal EF. Myocardial perfusion scan. Normal stress test. MRI of the shoulder shows tendinopathy. HOSPITAL COURSE: The patient was admitted to Telemetry for rule out ACS. The patient was ruled out for acute coronary syndrome by negative cardiac enzymes, negative EKGs. Echocardiogram within normal limits. Because of her risk factors, the patient underwent stress test which was negative. The patient also has been complaining of severe left shoulder pain for which she was given Motrin and Lidoderm patches. Underwent MRI. MRI is consistent with tendinopathy but with Lidoderm patches and Motrin, the patient's symptoms improved. The patient was evaluated by Orthopedics and Cardiology. All the workup is negative, and the patient is cleared by Cardiology. As the patient is otherwise hemodynamically stable, the patient is being discharged. Advised the patient to return to the ED if any recurrent symptoms occur. CONDITION UPON DISCHARGE: The patient is alert, awake, oriented x3. Hemodynamically stable at the time of discharge. DISCHARGE DIET: Low-sodium, low-cholesterol, 1800-calorie ADA diet. Activity as tolerated. DISCHARGE MEDICATIONS: Include lisinopril 5 mg daily, Zocor 40 mg at bedtime, metformin 1000 mg p.o. b.i.d., Amaryl 4 mg p.o. b.i.d., insulin 22 units at bedtime. DISCHARGE INSTRUCTIONS: Follow up with PMD. Follow up with Orthopedics if worsening symptoms of the left shoulder pain. Priscilla Riley MD
== END 2018-07-28 12:19 | disposition home or self-care (01) | DRG 248 ==
LOC: C.ER 06:58 → C.9E 10:56 → C.6T 15:37 → OBSVTOIN 07-26 13:21
PROVIDERS: ADMIT Internal Medicine; ATTEND Internal Medicine
DX: M75.102 Unspecified rotator cuff tear or rupture of left shoulder, not specified as traumatic (principal); R07.89 Other chest pain; E78.00 Pure hypercholesterolemia, unspecified; E11.9 Type 2 diabetes mellitus without complications; I10 Essential (primary) hypertension; K44.9 Diaphragmatic hernia without obstruction or gangrene; Z79.4 Long term (current) use of insulin